=== PATIENT | male | born 1980 | race African-American/Black ===

== ENCOUNTER 2019-07-22 20:10 | Emergency (ER) | payer SELFPAY ==
[~2019-07-22] VITALS: Ht 170.2 cm; Wt 70.3 kg
--- NOTE | 2019-07-22 20:28 | NUR ---
ED Nurse Note: pt walked in to ED for c/o tingling sensation to his left arm that radiates to his finger tips since yesterday. pt reports it "feels like its going to sleep" .
[2019-07-22 20:29] VITALS: BP 128/84
--- NOTE | 2019-07-22 20:50 | NUR ---
ER DISCHARGE NOTE: Patient is cleared to be discharged per ERMD, pt is aox4, on room air, with stable vital signs. pt was given dc instructions, pt was able to verbalize understanding, pt id band removed without complications. pt is able to ambulate with steady gait. pt took all belongings.
--- NOTE | 2019-07-22 22:44 | Emergency Room Report ---
History of Present Illness General Chief Complaint: General Complaint Source: Patient Present Illness HPI 39-year-old male presents the ED for evaluation. States he has some tingling in his left arm and feels his heart racing. Symptoms started yesterday. Denies any chest pain or shortness of breath. States symptoms started yesterday after smoking marijuana. Denies any alcohol or drug use. Denies fevers or chills. Denies cough. States he feels somewhat anxious. No other aggravating factors. Denies any other associated symptoms Allergies: Coded Allergies: No Known Allergies (Unverified , 07/22/19) COVID-19 Screening Contact w/high risk pt: No Recent Travel to affected area: No Experienced COVID-19 symptoms?: No Patient History Past Medical History: none Past Surgical History: none Pertinent Family History: none Social History: Reports: smoking; Denies: alcohol use, drug use Immunizations: UTD Reviewed Nursing Documentation: PMH: Agreed; PSxH: Agreed Nursing Documentation-PMH Past Medical History: No Stated History Review of Systems All Other Systems: negative except mentioned in HPI Physical Exam Vital Signs Date Time Temp Pulse Resp B/P (MAP) Pulse Ox O2 Delivery O2 Flow Rate FiO2 07/22/19 20:21 98.4 66 19 131/81 (98) 95 Room Air Sp02 EP Interpretation: reviewed, normal General Appearance: no apparent distress, alert, GCS 15, non-toxic Head: normocephalic, atraumatic Eyes: bilateral eye normal inspection, bilateral eye PERRL ENT: hearing grossly normal, normal pharynx, no angioedema, normal voice Neck: full range of motion, supple/symm/no masses Respiratory: chest non-tender, lungs clear, normal breath sounds, speaking full sentences Cardiovascular #1: regular rate, rhythm, no edema Cardiovascular #2: 2+ carotid (R), 2+ carotid (L), 2+ radial (R), 2+ radial (L) , 2+ dorsalis pedis (R), 2+ dorsalis pedis (L) Gastrointestinal: normal bowel sounds, non tender, soft, non-distended, no guarding, no rebound Rectal: deferred Genitourinary: normal inspection, no CVA tenderness Musculoskeletal: back normal, normal range of motion, gait/station normal, non- tender Neurologic: alert, motor strength/tone normal, oriented x3, sensory intact, responsive, speech normal Psychiatric: judgement/insight normal, memory normal, mood/affect normal, no suicidal/homicidal ideation Reflexes: 3+ bicep (R), 3+ bicep (L), 3+ tricep (R), 3+ tricep (L), 3+ knee (R) , 3+ knee (L) Lymphatic: no adenopathy Medical Decision Making Diagnostic Impression: Primary Impression: Palpitations ER Course Hospital Course 39-year-old male presents with tingling left arm, palpitations after smoking marijuana Differential diagnoses include: afib, Vtach, SVT, anxiety, dehydration Clinical course Patient placed on stretcher. After initial history and physical I ordered EKG EKG - NSR , no ischemic changes interpreted by me Vitals stable. No cardiac risk factors. Patient appears somewhat anxious. Has been here previously for anxiety. Likely anxiety triggered by marijuana use. I discussed findings with patient. Reassurance given. Safe for discharge for close outpatient follow-up. I will provide referrals I. I feel this is a highly complex case requiring extensive working including EKG/Rhythm strip, Xray/CT/US, Blood/urine lab work, repeat exams while in ED, and administration of strong opiates/narcotics for pain control, admission to hospital or close patient follow up. Diagnosis - palpitations Stable and discharged to home. Instructed to followup with PMD. Return to ED if symptoms recur or worsen EKG Diagnostic Results Rate: normal Rhythm: NSR ST Segments: no acute changes ASA given to the pt in ED: No Rhythm Strip Diag. Results EP Interpretation: yes Rhythm: NSR, no PVC's, no ectopy Last Vital Signs Date Time Temp Pulse Resp B/P (MAP) Pulse Ox O2 Delivery O2 Flow Rate FiO2 07/22/19 20:29 98.4 70 18 128/84 96 Room Air Status: improved Disposition: HOME, SELF-CARE Condition: Stable Referrals: NOT CHOSEN IPA/,REFERRING (PCP) Kiara Michel [facility]. [facility] Patient Instructions: Palpitations, [id number] Vargas Marie MD July 22, 2019 22:44
== END 2019-07-22 20:50 | disposition home or self-care (01) ==
LOC: EMR 20:45
DX: R00.2 Palpitations (principal); F12.90 Cannabis use, unspecified, uncomplicated
CPT/HCPCS: 93005; 99283